=== PATIENT | male | born 1935 | race Caucasian/White ===

== ENCOUNTER 2021-11-06 19:07 | Emergency (ER) | payer MEDICARE, OTHER ==
[~2021-11-06] VITALS: Ht 175.3 cm; Wt 68.0 kg
[2021-11-07 13:37] VITALS: BP 118/72
== END 2021-11-07 13:42 | disposition home or self-care (01) ==
LOC: ER 19:07
DX: S13.9XXA Sprain of joints and ligaments of unspecified parts of neck, initial encounter (principal); S40.011A Contusion of right shoulder, initial encounter; S00.03XA Contusion of scalp, initial encounter; S40.811A Abrasion of right upper arm, initial encounter; I11.0 Hypertensive heart disease with heart failure; I50.9 Heart failure, unspecified; W01.0XXA Fall on same level from slipping, tripping and stumbling without subsequent striking against object, initial encounter; Y93.89 Activity, other specified; Y92.89 Other specified places as the place of occurrence of the external cause; Y99.8 Other external cause status
CPT/HCPCS: 70450; 72125; 73030